=== PATIENT | female | born 1945 | race Hispanic/Latino ===

== ENCOUNTER 2018-08-29 14:49 | Outpatient (CLI) | payer MEDICARE, MEDICAID ==
--- NOTE | 2018-08-29 16:26 | MRI ---
MRI LUMBAR SPINE NONCONTRAST: DATE: 08/29/2018 HISTORY: 72-year-old female with low back pain and lumbar radiculopathy, "spinal stenosis" COMPARISON: None FINDINGS: For the purposes of this report, it will be assumed that there are 5 lumbar-type vertebrae. Vertebral body heights are maintained. 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 No central or neural foraminal stenosis . T11-12: No central or neural foraminal stenosis. T12-L1:Conus medullaris terminates at upper L1. Very small central disc extrusion with inferior migra tion of extruded disc material 2 pedicle level of L1. Generous caliber of spinal canal and thecal sac. No neural foraminal stenosis. Disc space maintained. L1-2:Essentially normal. L2-3:Essentially normal. L3-4:Essentially normal. L4-5:Moderate right facet DJD and mild left facet DJD result in mild grade 1 anterolisthesis of L4 on L5. Mild disc space narrowing. Prominent diffuse disc bulge. Mild to moderate right neural foraminal stenosis. Mild left neural foraminal stenosis. Mild trefoil configuration distortion of spi nal canal and thecal sac. Mild central stenosis. L5-S1:Severe bilateral facet DJD causes grade 1 anterolisthesis of L5 on S1. Mild disc space narrowin g. Diffuse disc bulge. Craniocaudal dimensions of neural foramina are narrowed, but the AP dimensions are elongated. Mild to moderate right neural foraminal stenosis. Moderate left neural fora rigo stenosis. Spinal canal and thecal sac are generous in caliber. IMPRESSION: 1) at L4-5 facet osteoarthrosis causes grade 1 spondylolisthesis, which, together with prominent diff use disc bulge, result in mild central stenosis. 2) at L5-S1 severe bilateral facet osteoarthrosis causes grade 1 spondylolisthesis, mild central sten osis, and moderate neural foraminal stenosis. 3) at all levels other than L4-5, the spinal canal and thecal sac are generous in caliber. 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
== END 2018-08-29 14:50 | disposition home or self-care (01) ==
LOC: BICMRI 14:49
PROVIDERS: ATTEND Orthopaedic Surgery
DX: M48.061 Spinal stenosis, lumbar region without neurogenic claudication (principal); M47.816 Spondylosis without myelopathy or radiculopathy, lumbar region; M43.16 Spondylolisthesis, lumbar region; M51.9 Unspecified thoracic, thoracolumbar and lumbosacral intervertebral disc disorder; M47.817 Spondylosis without myelopathy or radiculopathy, lumbosacral region; M43.17 Spondylolisthesis, lumbosacral region; M48.07 Spinal stenosis, lumbosacral region; Z98.1 Arthrodesis status
CPT/HCPCS: 72148

== ENCOUNTER 2019-02-15 12:02 | Emergency (ER) | payer MEDICARE, MEDICAID ==
--- NOTE | 2019-02-15 12:46 | RAD ---
XR Knee Rt 4 View STANDARD: 02/15/2019 12:06 PM CLINICAL INDICATION: Pain COMPARISON: None. FINDINGS: Fracture:No acute fracture. There is a mild degree of endosteal scalloping of the anterior distal metadiaphyseal region of the fe mur, age indeterminate Arthropathy:Mild arthropathy. Incidental findings: Mild suprapatellar joint capsular distention. IMPRESSION: 1. Mild endosteal scalloping of the anterior distal femur. Correlation with prior imaging would prove useful. Otherwise, findings may be further assessed with follow-up, dedicated MRI for further evaluation. Mild joint capsular distention. Correlate clinically..
--- NOTE | 2019-02-15 13:25 | ULT ---
EXAM: Right lower extremity venous duplex: Deep veins evaluated with color Doppler, spectral analysis, and compression. INDICATIONS: Right lower extremity pain and edema. FINDINGS: Deep veins interrogated include common femoral vein, femoral vein, popliteal vein, and post erior tibial vein. These veins show normal compression and blood flow. No evidence of DVT. IMPRESSION: Negative Right venous duplex exam.
== END 2019-02-15 14:12 | disposition home or self-care (01) ==
LOC: ERS 12:02
DX: M25.461 Effusion, right knee (principal); M79.81 Nontraumatic hematoma of soft tissue; I10 Essential (primary) hypertension; Z79.899 Other long term (current) drug therapy